=== PATIENT | male | born 1960 | race Caucasian/White ===

== ENCOUNTER 2021-12-31 06:58 | Outpatient (REF) | payer OTHER, SELFPAY ==
[2021-12-31 12:09] LABS: Prostate Specific Antigen Scr 1.49 ng/mL (<0.05-4.0)
[2021-12-31 12:23] LABS: Alanine Aminotransferase 18 U/L (0-40); Alkaline Phosphatase 82 U/L (39-117); Anion Gap 11 (12-20); Aspartate Amino Transferase 14 U/L (5-37); Bilirubin Total 0.7 mg/dL (0.0-1.0); Blood Urea Nitrogen 17 mg/dL (9-16); Calcium 9.1 mg/dL (8.4-10.2); Carbon Dioxide 25 mmol/L (22-29); Chloride 106 mmol/L (96-108); Cholesterol 210 mg/dL; Estimated Glomerular Filt Rate > 60; Glucose Fasting 248 mg/dL (60-99); HDL Cholesterol 30 mg/dL; LDL Cholesterol Calculated 151 mg/dl; Potassium 4.3 mmol/L (3.3-5.1); Sodium 138 mmol/L (135-145); Total Protein 6.8 g/dL (6.5-8.0); Triglycerides 147 mg/dL
[2021-12-31 12:33] LABS: Estimated Average Glucose 280 mg/dL; Hemoglobin A1c % 11.4 %
[2021-12-31 14:11] LABS: Creatinine Urine 119.42 mg/dL
[2022-01-01 19:06] LABS: C Peptide 0.65 ng/mL (0.80-3.85)
== END 2021-12-31 06:59 | disposition home or self-care (01) ==
LOC: HO.HMGCLDS 06:58
PROVIDERS: Visit Provider Internal Medicine
DX: Z12.5 Encounter for screening for malignant neoplasm of prostate (principal); E11.9 Type 2 diabetes mellitus without complications
CPT/HCPCS: 36415; 80053; 80061; 82043; 83036; 84153; 84681

== ENCOUNTER → 2022-02-25 08:58 | Outpatient (BNVA) | payer OTHER, SELFPAY | PROVIDERS: PCP Internal Medicine; Visit Provider Dietitian, Registered | DX: E11.9 Type 2 diabetes mellitus without complications (principal) | CPT/HCPCS: 97802 ==

== ENCOUNTER 2022-04-08 07:00 | Outpatient (REF) | payer OTHER, SELFPAY ==
[2022-04-08 11:39] LABS: Estimated Average Glucose 117 mg/dL; Hemoglobin A1c % 5.7 %
[2022-04-08 11:56] LABS: Alanine Aminotransferase 21 U/L (0-40); Albumin Level 4.1 g/dL (3.5-5.0); Alkaline Phosphatase 76 U/L (39-117); Anion Gap 10 (12-20); Aspartate Amino Transferase 29 U/L (5-37); Bilirubin Total 0.5 mg/dL (0.0-1.0); Blood Urea Nitrogen 19 mg/dL (9-16); Calcium 8.5 mg/dL (8.4-10.2); Carbon Dioxide 26 mmol/L (22-29); Chloride 108 mmol/L (96-108); Cholesterol 120 mg/dL; Estimated Glomerular Filt Rate > 60; Glucose Fasting 115 mg/dL (60-99); HDL Cholesterol 39 mg/dL; LDL Cholesterol Calculated 71 mg/dl; Potassium 4.4 mmol/L (3.3-5.1); Sodium 140 mmol/L (135-145); Total Protein 6.8 g/dL (6.5-8.0); Triglycerides 52 mg/dL
[2022-04-08 12:25] LABS: Creatinine Urine 125.03 mg/dL; Microalbum/Creatinine Ratio Ur 6.3 ug/mg cr
== END 2022-04-08 07:01 | disposition home or self-care (01) ==
LOC: HO.HMGCLDS 07:00
PROVIDERS: Visit Provider Internal Medicine
DX: E11.9 Type 2 diabetes mellitus without complications (principal); E78.5 Hyperlipidemia, unspecified
CPT/HCPCS: 36415; 80053; 80061; 82043; 83036

== ENCOUNTER 2022-07-02 07:22 | Outpatient (REF) | payer OTHER, SELFPAY ==
[2022-07-02 12:32] LABS: Microalbum/Creatinine Ratio Ur 11.4 ug/mg cr
[2022-07-02 12:32] LABS: Cholesterol 149 mg/dL; HDL Cholesterol 44 mg/dL; LDL Cholesterol Calculated 96 mg/dl; Triglycerides 47 mg/dL
[2022-07-02 12:50] LABS: Estimated Average Glucose 117 mg/dL; Hemoglobin A1C 137.7431 umol/L; Hemoglobin A1c % 5.7 %
== END 2022-07-02 07:23 | disposition home or self-care (01) ==
LOC: HO.HMGCLDS 07:22
PROVIDERS: PCP Internal Medicine; Visit Provider Internal Medicine
DX: E78.5 Hyperlipidemia, unspecified (principal); E11.9 Type 2 diabetes mellitus without complications
CPT/HCPCS: 36415; 80061; 82043; 83036

== ENCOUNTER 2023-07-05 07:23 | Outpatient (REF) | payer OTHER, SELFPAY ==
[2023-07-05 11:17] LABS: MANUAL DIFF FLAG NO
[2023-07-05 11:22] LABS: Basophils Percent Auto 1.1 % (0-2); Eosinophils Absolute Auto 0.1 X10*3/uL (0.0-0.4); Hemoglobin 14.2 g/dl (14.0-18.0); Imm Gran Abs Auto 0.03 X10*3/uL (0.00-0.03); Imm Gran Pct Auto 0.8 % (0.0-0.4); Lymphocytes Percent Auto 28.2 % (20-40); Mean Corpuscular HGB Conc 34.6 g/dl (31.0-36.0); Mean Corpuscular Hemoglobin 31.3 pg (27.0-33.0); Mean Corpuscular Volume 90.3 fL (80.0-98.0); Mean Platelet Volume 9.7 fL (9.4-12.4); Monocytes Absolute Auto 0.5 X10*3/uL (0.1-1.2); Monocytes Percent Auto 14.1 % (2-11); Neutrophils Percent Auto 52.8 % (45-73); Platelet Count 251 X10*3/uL (160-400); Red Blood Count 4.54 X10*6/uL (4.60-5.80); Red Cell Distribution Width 12.3 % (11.0-16.0); White Blood Count 3.7 X10*3/uL (4.8-10.8)
[2023-07-05 11:33] LABS: Estimated Average Glucose 128 mg/dL; Hemoglobin A1c % 6.1 % (<6.0)
[2023-07-05 12:35] LABS: Microalbum/Creatinine Ratio Ur 28.7 ug/mg cr (<30)
[2023-07-05 12:45] LABS: Alanine Aminotransferase 24 U/L (0-40); Albumin Level 4.2 g/dL (3.5-5.0); Alkaline Phosphatase 64 U/L (39-117); Anion Gap 11 (12-20); Aspartate Amino Transferase 23 U/L (5-37); Bilirubin Total 0.4 mg/dL (0.0-1.0); Blood Urea Nitrogen 18 mg/dL (9-16); Calcium 9.3 mg/dL (8.4-10.2); Carbon Dioxide 24 mmol/L (22-29); Chloride 109 mmol/L (96-108); Cholesterol 204 mg/dL (<200); Estimated Glomerular Filt Rate > 60; Glucose Fasting 136 mg/dL (60-99); HDL Cholesterol 44 mg/dL (>40); LDL Cholesterol Calculated 141 mg/dL (<100); Potassium 4.3 mmol/L (3.3-5.1); Sodium 140 mmol/L (135-145); Total Protein 7.2 g/dL (6.5-8.0); Triglycerides 98 mg/dL (<150)
== END 2023-07-05 07:24 | disposition home or self-care (01) ==
LOC: HO.HMGCLDS 07:23
PROVIDERS: PCP Internal Medicine; Visit Provider Internal Medicine
DX: E78.5 Hyperlipidemia, unspecified (principal); E11.9 Type 2 diabetes mellitus without complications
CPT/HCPCS: 36415; 80053; 80061; 82043; 82570; 83036; 85025

== ENCOUNTER 2023-07-07 10:16 | Outpatient (AMB) | payer OTHER, SELFPAY ==
[2023-07-07 10:24] VITALS: BP 118/80; PULSE 74; O2SAT 97; BMI 26.1
--- NOTE | 2023-07-07 10:24 | MHC.PC.OV ---
Vital Signs 07/07/23 10:24 Height 5 ft 8 in Weight 172 lb BMI 26.1 BP 118/80 Blood Pressure Location Lt brachial Position Sitting Pulse 74 Pulse Source Pulse Oximeter Pulse Oximetry (%) 97 Oxygen Delivery Method Room Air Intake Visit Reasons: PE Intake Note: Pt is here today for PE. Allergies No Known Allergies Allergy (Verified 07/07/23 10:26) Medication List - Last Reconciled 07/07/23 by Susana Webster MD blood sugar diagnostic (FreeStyle Lite Strips) 1 QD lancets (FreeStyle Lancets) As directed metformin 500 mg PO BID metformin 250 mg PO BID rosuvastatin (Crestor) 5 mg PO DAILY Tobacco use date assessed: 07/07/23 Dental Screening Dental Screen Date: 07/07/23 Did you have a dental visit in the last 12 months?: Yes Did you have a dental problem in the last 6 months where you did not have access to dental care?: No Was dental information given to patient?: Patient has dentist HPI PE HPI Details Pt presents for PE. Pt is going for a ski trip to [place] in October [facility] Medical History Hyperlipidemia DM type 2 (diabetes mellitus, type 2) Family History Father Prostate cancer Mother No problems noted. Social History Housing: House Patient Tobacco Use Status: Never used Tobacco e-Cigarette/Vaping Use: Never Used Current occupational status: employed Cognitive needs: No Hearing needs: No Vision needs: Yes Questionnaire PHQ-9 Over the last 2 weeks, how often have you been bothered by any of the following problems? 1. Little interest or pleasure in doing things: not at all 2. Feeling down, depressed, or hopeless: not at all 3. Trouble falling or staying asleep, or sleeping too much: not at all 4. Feeling tired or having little energy: not at all 5. Poor appetite or overeating: not at all 6. Feeling bad about yourself - or that you are a failure or have let yourself or your family down: not at all 7. Trouble concentrating on things, such as reading the newspaper or watching television: not at all 8. Moving or speaking so slowly that other people could have noticed. Or the opposite - being so fidgety or restless that you have been moving around a lot more than usual: not at all 9. Thoughts that you would be better off or of hurting yourself in some way: not at all Total score: 0 Depression Screening Interpretation: Negative Depression Screening Done: Yes Source: Developed by Drs. Angel Moran, Laura Delgadillo, George Miller and colleagues, with an educational jeevan from [employer]. Thrive Questionnaire Date Thrive assessed: 07/07/23 I am a: Patient What is your living situation today?: I have a steady place to live Within the past 12 months, did the food you bought not last and you didn't have the money to get more?: Never true Within the past 12 months, did you worry whether your food would run out before you got money to buy more?: Never true Do you have trouble paying for medicines?: No Do you have trouble getting transportation to medical appointments?: No Do you have trouble paying your heating and electricity bill?: No Do you have trouble taking care of your child, family member or friend?: No Do you have trouble with day-to-day activities such as bathing, preparing meals, shopping, managing finances, etc.?: No Are you currently unemployed and looking for a job?: No Are you interested in more education?: No Please select the resources that you would like help with: None AUDIT C Alcohol Use Questionnaire (AUDIT-C) 1. How often do you have a drink containing alcohol?: 2-3 times a week 2. How many drinks containing alcohol do you have on a typical day when you are drinking?: 1 or 2 3. How often do you have six or more drinks on one occasion?: Never Total Score: 3 RANDI-7 AMB Questionnaire RANDI-7 Date RANDI - 7 assessed: 07/07/23 Feeling nervous, anxious, or on edge: 0 = Not at all Not being able to stop or control worryin = Not at all Worrying too much about different things: 0 = Not at all Trouble relaxin = Not at all Being so restless that it is hard to sit still: 0 = Not at all Becoming easily annoyed or irritable: 0 = Not at all Feeling afraid as if something awful might happen: 0 = Not at all Total RANDI-7 score (0-4 normal; 5-9 mild; 10-14 moderate; 15-21 severe): 0 Source: Developed by Drs. Angel Moran, Laura Delgadillo, George Miller and colleagues, with an educational jeevan from [employer]. Review of Systems Const All systems reviewed & are unremarkable except as noted in HPI and below Reports no additional complaints Eyes Reports no additional complaints ENT Reports no additional complaints Card Reports no additional complaints Resp Reports no additional complaints GI Reports no additional complaints Reports no additional complaints Musc Reports no additional complaints Neuro Reports no additional complaints Physical exam (Primary Care) Vital Signs: Last Vital Signs Pulse 74 07/07/23 10:24 BP 118/80 07/07/23 10:24 Pulse Ox 97 07/07/23 10:24 Oxygen Delivery Method Room Air 07/07/23 10:24 BMI result Body Mass Index 26.1 Tobacco/Smoking Status: Tobacco use Status Tobacco use date assessed 07/07/23 07/07/23 10:29 Patient Tobacco Use Status Never used Tobacco 07/07/23 10:29 e-Cigarette/Vaping Use Never Used 07/07/23 10:25 PHQ-9: PHQ-9 Score PHQ-9: Total score 0 07/07/23 10:33 Depression Screening Interpretation: Negative Thrive Assessment: Date of Thrive Assessment Date Thrive assessed 07/07/23 07/07/23 10:33 Const General: no acute distress HENMT Head: Yes normal to inspection Ears: hearing grossly normal bilaterally General nose exam: Normal external nose present Face and sinus: Yes normal facial exam Mouth: Normal oral and palatal mucosa present Eyes General: appearance normal, both eyes and all related structures Neck Neck: Yes no lymphadenopathy and Yes supple Resp Effort & Inspection: normal respiratory effort Auscultation: clear to auscultation bilaterally Cardio Rhythm: regular rhythm Heart sounds: S1 normal heart sound present and S2 normal heart sound present GI Inspection: Yes normal to inspection Palpation (GI): Soft to palpation Percussion: Yes normal to percussion Auscultation: normal bowel sounds Assessment and Plan Assessment & Plan (1) DM type 2 (diabetes mellitus, type 2): Code(s): E11.9 - Type 2 diabetes mellitus without complications Plan: A1C is 6.1, increase Metformin to 500 mg bid, ADA diet, exercise, f/u 6 months (2) Hyperlipidemia: Comment: Atorvastatin causes leg cramps Code(s): E78.5 - Hyperlipidemia, unspecified Plan: start Crestor 5 mg, check lipid profile (3) Annual physical exam: Code(s): Z00.00 - Encounter for general adult medical examination without abnormal findings Plan: well balanced diet, regular exercise, pt will have colonoscopy Orders: Orders Lipid Panel 6 Months E11.9 - Type 2 diabetes mellitus without complications, E78.5 - Hyperlipidemia, unspecified, Z00.00 - Encounter for general adult medical examination without abnormal findings PSA,Total (Free>4and<10) 6 Months E11.9 - Type 2 diabetes mellitus without complications, E78.5 - Hyperlipidemia, unspecified, Z00.00 - Encounter for general adult medical examination without abnormal findings Comprehensive [place]. Panel Fast 6 Months E11.9 - Type 2 diabetes mellitus without complications, E78.5 - Hyperlipidemia, unspecified, Z00.00 - Encounter for general adult medical examination without abnormal findings Complete Blood Count Auto Diff 6 Months E11.9 - Type 2 diabetes mellitus without complications, E78.5 - Hyperlipidemia, unspecified, Z00.00 - Encounter for general adult medical examination without abnormal findings Hemoglobin A1c 6 Months E11.9 - Type 2 diabetes mellitus without complications, E78.5 - Hyperlipidemia, unspecified, Z00.00 - Encounter for general adult medical examination without abnormal findings Medications: Changed From metformin 250 mg PO BID To metformin 500 mg PO BID 180 tabs 0RF From metformin 250 mg PO BID To rosuvastatin (Crestor) 5 mg PO DAILY 90 tabs 3RF Refilled metformin 500 mg PO BID 180 tabs 3RF Discontinued rosuvastatin (Crestor) Discontinued Reason: Doctor's Order 10 mg PO DAILY 90 tabs 3RF Coding Level of Care Code Est Pt Prev Care 40-64y(36263) Diagnoses DM type 2 (diabetes mellitus, type 2) E11.9 Hyperlipidemia E78.5 Annual physical exam Z00.00 Additional Codes PHQ-9 - 72002 - PHQ-9 Billing: ([id number])
== END 2023-07-07 10:54 | disposition home or self-care (01) ==
PROVIDERS: Visit Provider Internal Medicine
DX: E11.9 Type 2 diabetes mellitus without complications (principal); E78.5 Hyperlipidemia, unspecified; Z00.00 Encounter for general adult medical examination without abnormal findings
CPT/HCPCS: 99396

== ENCOUNTER 2024-01-04 07:59 | Outpatient (REF) | payer OTHER, SELFPAY ==
[2024-01-04 10:14] LABS: MANUAL DIFF FLAG NO
[2024-01-04 10:36] LABS: Basophils Percent Auto 0.8 % (0-2); Eosinophils Absolute Auto 0.1 X10*3/uL (0.0-0.4); Eosinophils Percent Auto 2.8 % (0-4); Hemoglobin 14.4 g/dl (14.0-18.0); Imm Gran Abs Auto 0.01 X10*3/uL (0.00-0.03); Imm Gran Pct Auto 0.3 % (0.0-0.4); Lymphocytes Absolute Auto 0.9 X10*3/uL (1.2-4.9); Lymphocytes Percent Auto 23.5 % (20-40); Mean Corpuscular HGB Conc 34.3 g/dl (31.0-36.0); Mean Corpuscular Hemoglobin 30.9 pg (27.0-33.0); Mean Corpuscular Volume 90.1 fL (80.0-98.0); Mean Platelet Volume 9.8 fL (9.4-12.4); Monocytes Absolute Auto 0.4 X10*3/uL (0.1-1.2); Monocytes Percent Auto 11.4 % (2-11); Neutrophils Absolute Auto 2.4 x10*3/uL (2.0-8.3); Neutrophils Percent Auto 61.2 % (45-73); Platelet Count 276 X10*3/uL (160-400); Red Blood Count 4.66 X10*6/uL (4.60-5.80); Red Cell Distribution Width 12.5 % (11.0-16.0); White Blood Count 3.9 X10*3/uL (4.8-10.8)
[2024-01-04 11:13] LABS: PSA,Total (Free>4and<10) 2.46 ng/mL (0.00-4.00)
[2024-01-04 11:15] LABS: Alanine Aminotransferase 17 U/L (0-40); Albumin Level 4.2 g/dL (3.5-5.0); Alkaline Phosphatase 74 U/L (39-117); Anion Gap 11 (12-20); Aspartate Amino Transferase 22 U/L (5-37); Bilirubin Total 0.7 mg/dL (0.0-1.0); Blood Urea Nitrogen 22 mg/dL (9-16); Calcium 9.2 mg/dL (8.4-10.2); Carbon Dioxide 23 mmol/L (22-29); Chloride 107 mmol/L (96-108); Cholesterol 180 mg/dL (<200); Estimated Glomerular Filt Rate > 60; Glucose Fasting 115 mg/dL (60-99); HDL Cholesterol 45 mg/dL (>40); LDL Cholesterol Calculated 122 mg/dL (<100); Potassium 4.3 mmol/L (3.3-5.1); Sodium 137 mmol/L (135-145); Total Protein 7.2 g/dL (6.5-8.0); Triglycerides 68 mg/dL (<150)
[2024-01-04 11:26] LABS: Estimated Average Glucose 128 mg/dL; Hemoglobin A1C 151.3024 umol/L; Hemoglobin A1c % 6.1 % (<6.0)
== END 2024-01-04 08:00 | disposition home or self-care (01) ==
LOC: HO.HMGCLDS 07:59
PROVIDERS: PCP Internal Medicine; Visit Provider Internal Medicine
DX: Z00.00 Encounter for general adult medical examination without abnormal findings (principal); E78.5 Hyperlipidemia, unspecified; E11.9 Type 2 diabetes mellitus without complications; Z12.5 Encounter for screening for malignant neoplasm of prostate
CPT/HCPCS: 36415; 80053; 80061; 83036; 84153; 85025

== ENCOUNTER 2024-01-09 10:03 | Outpatient (AMB) | payer OTHER, SELFPAY ==
--- NOTE | 2024-01-09 10:07 | MHC.PC.OV ---
Vital Signs 01/09/24 10:08 Height 5 ft 8 in Weight 171 lb BMI 26.0 BP 130/84 Blood Pressure Location Lt brachial Position Sitting Pulse 70 Pulse Source Pulse Oximeter Pulse Oximetry (%) 98 Oxygen Delivery Method Room Air Intake Visit Reasons: 6 month follow up Intake Note: Pt is here today for 6 months follow up visit. Allergies No Known Allergies Allergy (Verified 01/09/24 10:10) Medication List - Last Reconciled 01/09/24 by Susana Webster MD atorvastatin 20 mg PO DAILY blood sugar diagnostic (FreeStyle Lite Strips) 1 QD lancets (FreeStyle Lancets) As directed metformin 500 mg PO BID Tobacco use date assessed: 01/09/24 Fall risk assessment: No Falls in past year Last assessed Fall Risk: 01/09/24 Dental Screening Dental Screen Date: 01/09/24 Did you have a dental visit in the last 12 months?: Yes Did you have a dental problem in the last 6 months where you did not have access to dental care?: No Was dental information given to patient?: Patient has dentist HPI 6 month follow up HPI Details Patient presents for the follow-up. He has not been compliant with ADA diet and taking medications and regular basis. Patient stopped taking Crestor because of elevation in his blood glucose readings. Patient is physically active at least 4 times a week. [facility] Medical History (Updated 01/09/24 @ 11:09 by Susana Webster MD) Hyperlipidemia DM type 2 (diabetes mellitus, type 2) Surgical History History of orchiectomy Family History Father Prostate cancer Mother No problems noted. Social History Housing: House Patient Tobacco Use Status: Never used Tobacco e-Cigarette/Vaping Use: Never Used service: No Current occupational status: employed Cognitive needs: No Hearing needs: No Vision needs: Yes Questionnaire PHQ-9 Over the last 2 weeks, how often have you been bothered by any of the following problems? 1. Little interest or pleasure in doing things: not at all 2. Feeling down, depressed, or hopeless: not at all 3. Trouble falling or staying asleep, or sleeping too much: not at all 4. Feeling tired or having little energy: not at all 5. Poor appetite or overeating: not at all 6. Feeling bad about yourself - or that you are a failure or have let yourself or your family down: not at all 7. Trouble concentrating on things, such as reading the newspaper or watching television: not at all 8. Moving or speaking so slowly that other people could have noticed. Or the opposite - being so fidgety or restless that you have been moving around a lot more than usual: not at all 9. Thoughts that you would be better off or of hurting yourself in some way: not at all Total score: 0 Depression Screening Interpretation: Negative Depression Screening Done: Yes Source: Developed by Drs. Angel Moran, Laura Delgadillo, George Miller and colleagues, with an educational jeevan from [employer]. Thrive Questionnaire Date Thrive assessed: 01/09/24 I am a: Patient What is your living situation today?: I have a steady place to live Within the past 12 months, did the food you bought not last and you didn't have the money to get more?: Never true Within the past 12 months, did you worry whether your food would run out before you got money to buy more?: Never true Do you have trouble paying for medicines?: No Do you have trouble getting transportation to medical appointments?: No Do you have trouble paying your heating and electricity bill?: No Do you have trouble taking care of your child, family member or friend?: No Do you have trouble with day-to-day activities such as bathing, preparing meals, shopping, managing finances, etc.?: No Are you currently unemployed and looking for a job?: No Are you interested in more education?: No Please select the resources that you would like help with: None THRIVE Score: 0 AUDIT C Alcohol Use Questionnaire (AUDIT-C) 1. How often do you have a drink containing alcohol?: 2-3 times a week 2. How many drinks containing alcohol do you have on a typical day when you are drinking?: 1 or 2 3. How often do you have six or more drinks on one occasion?: Never Total Score: 3 RANDI-7 AMB Questionnaire RANDI-7 Date RANDI - 7 assessed: 01/09/24 Feeling nervous, anxious, or on edge: 0 = Not at all Not being able to stop or control worryin = Not at all Worrying too much about different things: 0 = Not at all Trouble relaxin = Not at all Being so restless that it is hard to sit still: 0 = Not at all Becoming easily annoyed or irritable: 0 = Not at all Feeling afraid as if something awful might happen: 0 = Not at all Total RANDI-7 score (0-4 normal; 5-9 mild; 10-14 moderate; 15-21 severe): 0 Source: Developed by Drs. Angel Moran, Laura Delgadillo, George Miller and colleagues, with an educational jeevan from [employer]. Review of Systems Const All systems reviewed & are unremarkable except as noted in HPI and below Eyes Reports no additional complaints ENT Reports no additional complaints Resp Reports no additional complaints GI Reports no additional complaints Physical exam (Primary Care) Vital Signs: Last Vital Signs Pulse 70 01/09/24 10:08 BP 130/84 01/09/24 10:08 Pulse Ox 98 01/09/24 10:08 Oxygen Delivery Method Room Air 01/09/24 10:08 BMI result Body Mass Index 26.0 Tobacco/Smoking Status: Tobacco use Status Tobacco use date assessed 01/09/24 01/09/24 10:15 Patient Tobacco Use Status Never used Tobacco 01/09/24 10:15 e-Cigarette/Vaping Use Never Used 01/09/24 10:07 PHQ-9: PHQ-9 Score PHQ-9: Total score 0 01/09/24 10:15 Depression Screening Interpretation: Negative Thrive Assessment: Date of Thrive Assessment Date Thrive assessed 01/09/24 01/09/24 10:15 Const General: no acute distress HENMT Face and sinus: Yes normal facial exam Neck Neck: Yes supple Resp Effort & Inspection: normal respiratory effort Auscultation: clear to auscultation bilaterally Cardio Rhythm: regular rhythm Heart sounds: S1 normal heart sound present and S2 normal heart sound present GI Inspection: Yes normal to inspection Palpation (GI): Soft to palpation Assessment and Plan Assessment & Plan (1) DM type 2 (diabetes mellitus, type 2): Code(s): E11.9 - Type 2 diabetes mellitus without complications Plan: A1c is 6.1, ADA diet increase exercise and medication compliance discussed with the patient (2) Hyperlipidemia: Comment: Crestor hyperglycemia Code(s): E78.5 - Hyperlipidemia, unspecified Plan: Change Crestor to atorvastatin 20 mg follow-up in 3 months with a fasting labs before Orders: Orders Comprehensive [place]. Panel Fast 3 Months E11.9 - Type 2 diabetes mellitus without complications, E78.5 - Hyperlipidemia, unspecified Hemoglobin A1c 3 Months E11.9 - Type 2 diabetes mellitus without complications, E78.5 - Hyperlipidemia, unspecified Microalbumin, Random (w Creat) 3 Months E11.9 - Type 2 diabetes mellitus without complications, E78.5 - Hyperlipidemia, unspecified Complete Blood Count Auto Diff 3 Months E11.9 - Type 2 diabetes mellitus without complications, E78.5 - Hyperlipidemia, unspecified Lipid Panel 3 Months E11.9 - Type 2 diabetes mellitus without complications, E78.5 - Hyperlipidemia, unspecified Medications: New atorvastatin 20 mg PO DAILY 90 tabs 0RF Refilled blood sugar diagnostic (FreeStyle Lite Strips) 1 QD 100 ea 3RF Discontinued rosuvastatin (Crestor) Discontinued Reason: Doctor's Order 5 mg PO DAILY 90 tabs 3RF Coding Level of Care Code Est Pt Level 4 (46633) Diagnoses DM type 2 (diabetes mellitus, type 2) E11.9 Hyperlipidemia E78.5 Additional Codes PHQ-9 - 98277 - PHQ-9 Billing: ([id number])
[2024-01-09 10:08] VITALS: BP 130/84; PULSE 70; O2SAT 98; BMI 26.0
== END 2024-01-09 10:48 | disposition home or self-care (01) ==
PROVIDERS: PCP Internal Medicine; Visit Provider Internal Medicine
DX: E11.9 Type 2 diabetes mellitus without complications (principal); E78.5 Hyperlipidemia, unspecified
CPT/HCPCS: 99214

== ENCOUNTER 2024-04-11 06:09 | Outpatient (REF) | payer OTHER, SELFPAY ==
[2024-04-11 10:03] LABS: MANUAL DIFF FLAG NO
[2024-04-11 10:13] LABS: Eosinophils Absolute Auto 0.2 X10*3/uL (0.0-0.4); Eosinophils Percent Auto 3.9 % (0-4); Hematocrit 38.6 % (42.0-52.0); Hemoglobin 13.3 g/dl (14.0-18.0); Lymphocytes Percent Auto 23.5 % (20-40); Mean Corpuscular HGB Conc 34.5 g/dl (31.0-36.0); Mean Corpuscular Hemoglobin 31.6 pg (27.0-33.0); Mean Corpuscular Volume 91.7 fL (80.0-98.0); Mean Platelet Volume 9.8 fL (9.4-12.4); Monocytes Absolute Auto 0.4 X10*3/uL (0.1-1.2); Neutrophils Absolute Auto 2.5 x10*3/uL (2.0-8.3); Neutrophils Percent Auto 61.6 % (45-73); Platelet Count 235 X10*3/uL (160-400); Red Blood Count 4.21 X10*6/uL (4.60-5.80); Red Cell Distribution Width 12.5 % (11.0-16.0); White Blood Count 4.1 X10*3/uL (4.8-10.8)
[2024-04-11 10:35] LABS: Alanine Aminotransferase 19 U/L (0-40); Albumin Level 3.9 g/dL (3.5-5.0); Alkaline Phosphatase 67 U/L (39-117); Anion Gap 9 (12-20); Aspartate Amino Transferase 21 U/L (5-37); Bilirubin Total 0.3 mg/dL (0.0-1.0); Blood Urea Nitrogen 22 mg/dL (9-16); Calcium 8.7 mg/dL (8.4-10.2); Carbon Dioxide 27 mmol/L (22-29); Chloride 108 mmol/L (96-108); Cholesterol 126 mg/dL (<200); Estimated Glomerular Filt Rate > 60; Glucose Fasting 134 mg/dL (60-99); HDL Cholesterol 36 mg/dL (>40); LDL Cholesterol Calculated 77 mg/dL (<100); Potassium 4.1 mmol/L (3.3-5.1); Sodium 140 mmol/L (135-145); Total Protein 6.7 g/dL (6.5-8.0); Triglycerides 66 mg/dL (<150)
[2024-04-11 10:47] LABS: Creatinine Urine 137.42 mg/dL; Microalbum/Creatinine Ratio Ur 10.9 ug/mg cr (<30)
[2024-04-11 11:20] LABS: Estimated Average Glucose 134 mg/dL; Hemoglobin A1c % 6.3 % (<6.0)
== END 2024-04-11 06:10 | disposition home or self-care (01) ==
LOC: HO.HMGCLDS 06:09
PROVIDERS: PCP Internal Medicine; Visit Provider Internal Medicine
DX: E11.9 Type 2 diabetes mellitus without complications (principal); E78.5 Hyperlipidemia, unspecified
CPT/HCPCS: 36415; 80053; 80061; 82043; 82570; 83036; 85025

== ENCOUNTER 2024-04-12 10:55 | Outpatient (AMB) | payer OTHER, SELFPAY ==
[2024-04-12 11:00] VITALS: BP 128/80; PULSE 67; O2SAT 98; BMI 25.5
--- NOTE | 2024-04-12 11:00 | A.OFFPC_ITS ---
Vital Signs 04/12/24 11:00 Height 5 ft 8 in Weight 168 lb BMI 25.5 BP 128/80 Blood Pressure Location Lt brachial Position Sitting Pulse 67 Pulse Source Pulse Oximeter Pulse Oximetry (%) 98 Oxygen Delivery Method Room Air Intake Visit Reasons: 3M F/U labs Intake Note: Pt is here today for 3 months follow up visit on labs. Allergies No Known Allergies Allergy (Verified 04/12/24 11:00) Medication List - Last Reconciled 04/12/24 by Susana Webster MD atorvastatin 20 mg PO DAILY blood sugar diagnostic (FreeStyle Lite Strips) 1 QD lancets (FreeStyle Lancets) As directed metformin 500 mg PO BID Tobacco use date assessed: 04/12/24 Fall risk assessment: No Falls in past year Last assessed Fall Risk: 04/12/24 Dental Screening Dental Screen Date: 01/09/24 HPI 3M F/U labs HPI Details Pt presents for f/u. Pt c/o chronic for few months R sided LBP pain worse for 2 weeks when standing up and walking . Patient denies pain when sitting or lying down. He reports intermittent pain radiating to right lower extremity. he complains of chronic right knee pain and stiffness worse after exercising. Patient works physically in construction, lifting heavily. Patient denies weakness or numbness in extremities. He has been following ADA diet and taking metformin for type 2 diabetes [facility] Medical History (Updated 04/12/24 @ 11:52 by Susana Webster MD) Hyperlipidemia DM type 2 (diabetes mellitus, type 2) Surgical History History of orchiectomy Family History Father Prostate cancer Mother No problems noted. Social History Housing: House Patient Tobacco Use Status: Never used Tobacco e-Cigarette/Vaping Use: Never Used service: No Current occupational status: employed Cognitive needs: No Hearing needs: No Vision needs: Yes Questionnaire Thrive Questionnaire Date Thrive assessed: 01/09/24 RANDI-7 AMB Questionnaire RANDI-7 Date RANDI - 7 assessed: 01/09/24 Source: Developed by Drs. Angel Moran, Laura B.W. George Delgadillo and colleagues, with an educational jeevan from [employer]. Review of Systems Const All systems reviewed & are unremarkable except as noted in HPI and below Eyes Reports no additional complaints ENT Reports no additional complaints Card Reports no additional complaints Resp Reports no additional complaints GI Reports no additional complaints Reports no additional complaints Physical exam (Primary Care) Vital Signs: Last Vital Signs Pulse 67 04/12/24 11:00 BP 128/80 04/12/24 11:00 Pulse Ox 98 04/12/24 11:00 Oxygen Delivery Method Room Air 04/12/24 11:00 BMI result Body Mass Index 25.5 Tobacco/Smoking Status: Tobacco use Status Tobacco use date assessed 04/12/24 04/12/24 11:01 Patient Tobacco Use Status Never used Tobacco 04/12/24 11:00 e-Cigarette/Vaping Use Never Used 04/12/24 11:00 Thrive Assessment: Date of Thrive Assessment Date Thrive assessed 01/09/24 04/12/24 11:00 Const General: no acute distress HENMT Head: Yes normal to inspection Ears: hearing grossly normal bilaterally Mouth: Normal oral and palatal mucosa present Eyes General: appearance normal, both eyes and all related structures Resp Effort & Inspection: normal respiratory effort Auscultation: clear to auscultation bilaterally Cardio Rhythm: regular rhythm Heart sounds: S1 normal heart sound present and S2 normal heart sound present GI Inspection: Yes normal to inspection Palpation (GI): Soft to palpation Percussion: Yes normal to percussion Auscultation: normal bowel sounds Extrem Other: There is tenderness over right SI joint, straight leg rising 90 degrees bilaterally, paraspinal tenderness in lower lumbar region right more than left, right knee with crepitus and decreased range of motion, no soft tissue swelling erythema or warmth Assessment and Plan Assessment & Plan (1) Lower back pain: Code(s): M54.50 - Low back pain, unspecified Plan: For chronic lower back and SI joint pain x-rays will be obtained. Meloxicam is prescribed and patient will be referred to physical therapy (2) DM type 2 (diabetes mellitus, type 2): Code(s): E11.9 - Type 2 diabetes mellitus without complications Plan: A1c is 6.3 ADA diet increase exercise weight loss discussed with the patient continue metformin follow-up in 3 months with a fasting labs before (3) Hyperlipidemia: Comment: Crestor hyperglycemia Code(s): E78.5 - Hyperlipidemia, unspecified Plan: Continue statin (4) Anemia: Code(s): D64.9 - Anemia, unspecified Plan: Check iron studies and B12 level (5) Dysplastic nevus: Code(s): D23.9 - Other benign neoplasm of skin, unspecified Plan: Referred to dermatology Orders: Orders XR lumbar spine 2-3V Today M54.50 - Low back pain, unspecified XR hip BI w PEL1V Today M54.50 - Low back pain, unspecified Hemoglobin A1c 3 Months D64.9 - Anemia, unspecified, E11.9 - Type 2 diabetes mellitus without complications, E78.5 - Hyperlipidemia, unspecified Complete Blood Count Auto Diff 3 Months D64.9 - Anemia, unspecified, E11.9 - Type 2 diabetes mellitus without complications, E78.5 - Hyperlipidemia, unspecified Vitamin B12 and Folate 3 Months D64.9 - Anemia, unspecified, E11.9 - Type 2 diabetes mellitus without complications, E78.5 - Hyperlipidemia, unspecified XR sacroiliac joint min 3V Today M54.50 - Low back pain, unspecified Comprehensive [place]. Panel Fast 3 Months D64.9 - Anemia, unspecified, E11.9 - Type 2 diabetes mellitus without complications, E78.5 - Hyperlipidemia, unspecified Lipid Panel 3 Months D64.9 - Anemia, unspecified, E11.9 - Type 2 diabetes mellitus without complications, E78.5 - Hyperlipidemia, unspecified Microalbumin, Random (w Creat) 3 Months D64.9 - Anemia, unspecified, E11.9 - Type 2 diabetes mellitus without complications, E78.5 - Hyperlipidemia, unspecified IRON PROFILE 3 Months D64.9 - Anemia, unspecified, E11.9 - Type 2 diabetes mellitus without complications, E78.5 - Hyperlipidemia, unspecified Referrals Dermatology Referral D23.9 - Other benign neoplasm of skin, unspecified Medications: New meloxicam 15 mg PO DAILY 10 tabs 0RF Coding Level of Care Code Est Pt Level 4 (07746) Diagnoses Lower back pain M54.50 DM type 2 (diabetes mellitus, type 2) E11.9 Hyperlipidemia E78.5 Anemia D64.9 Dysplastic nevus D23.9
== END 2024-04-12 12:35 | disposition home or self-care (01) ==
PROVIDERS: PCP Internal Medicine; Visit Provider Internal Medicine
DX: M54.50 Low back pain, unspecified (principal); E11.9 Type 2 diabetes mellitus without complications; E78.5 Hyperlipidemia, unspecified; D64.9 Anemia, unspecified; D23.9 Other benign neoplasm of skin, unspecified
CPT/HCPCS: 99214

== ENCOUNTER 2024-04-12 11:54 | Outpatient (REF) | payer OTHER, SELFPAY ==
--- NOTE | ~2024-04-12 | XR_ITS ---
EXAMINATION: XR LUMBAR SPINE XR SACROILIAC JOINTS XR BILATERAL HIPS AND PELVIS CLINICAL INFORMATION: Low back pain. COMPARISON: None available. TECHNIQUE: 3 views lumbar spine, 3 views sacroiliac joint and 5 views of bilateral hips. FINDINGS: LUMBAR SPINE: Dextroscoliosis of the lumbar spine. Straightening of the normal lumbar lordosis. Advanced facet arthritis in the [id number] lumbar spine. Severe multilevel lumbar spondylosis with multilevel loss of disc space height. There is a transitional lumbosacral vertebral body referred to as L5 for the purposes of this report. There is an enlarged left L5 transverse process with pseudoarticulation on the left. There is possible right L5 pseudoarticulation. Correlation with imaging of the entire spine recommended before any procedure/instrumentation to ensure correct numbering of vertebral bodies. BILATERAL SACROILIAC JOINTS: Osteitis pubis. Bilateral sacroiliac joint osteoarthritis. BILATERAL HIPS: Osteitis pubis. 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 XR/XR lumbar spine 2-3V IMPRESSION: 1. Severe multilevel lumbar spondylosis. 2. Transitional lumbosacral vertebral body referred to as L5 for the purposes of this report. There is an enlarged left L5 transverse process with pseudoarticulation on the left. There is possible right L5 pseudoarticulation. Correlation with imaging of the entire spine recommended before any procedure/instrumentation to ensure correct numbering of vertebral bodies. 3. 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 4. Bilateral sacroiliac joint osteoarthritis.
--- NOTE | ~2024-04-12 | XR_ITS ---
EXAMINATION: XR LUMBAR SPINE XR SACROILIAC JOINTS XR BILATERAL HIPS AND PELVIS CLINICAL INFORMATION: Low back pain. COMPARISON: None available. TECHNIQUE: 3 views lumbar spine, 3 views sacroiliac joint and 5 views of bilateral hips. FINDINGS: LUMBAR SPINE: Dextroscoliosis of the lumbar spine. Straightening of the normal lumbar lordosis. Advanced facet arthritis in the [id number]-[id number] lumbar spine. Severe multilevel lumbar spondylosis with multilevel loss of disc space height. There is a transitional lumbosacral vertebral body referred to as L5 for the purposes of this report. There is an enlarged left L5 transverse process with pseudoarticulation on the left. There is possible right L5 pseudoarticulation. Correlation with imaging of the entire spine recommended before any procedure/instrumentation to ensure correct numbering of vertebral bodies. BILATERAL SACROILIAC JOINTS: Osteitis pubis. Bilateral sacroiliac joint osteoarthritis. BILATERAL HIPS: Osteitis pubis. 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 XR/XR hip BI w PEL1V IMPRESSION: 1. Severe multilevel lumbar spondylosis. 2. Transitional lumbosacral vertebral body referred to as L5 for the purposes of this report. There is an enlarged left L5 transverse process with pseudoarticulation on the left. There is possible right L5 pseudoarticulation. Correlation with imaging of the entire spine recommended before any procedure/instrumentation to ensure correct numbering of vertebral bodies. 3. 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 4. Bilateral sacroiliac joint osteoarthritis.
--- NOTE | ~2024-04-12 | XR_ITS ---
EXAMINATION: XR LUMBAR SPINE XR SACROILIAC JOINTS XR BILATERAL HIPS AND PELVIS CLINICAL INFORMATION: Low back pain. COMPARISON: None available. TECHNIQUE: 3 views lumbar spine, 3 views sacroiliac joint and 5 views of bilateral hips. FINDINGS: LUMBAR SPINE: Dextroscoliosis of the lumbar spine. Straightening of the normal lumbar lordosis. Advanced facet arthritis in the ajl-mz-atgnv lumbar spine. Severe multilevel lumbar spondylosis with multilevel loss of disc space height. There is a transitional lumbosacral vertebral body referred to as L5 for the purposes of this report. There is an enlarged left L5 transverse process with pseudoarticulation on the left. There is possible right L5 pseudoarticulation. Correlation with imaging of the entire spine recommended before any procedure/instrumentation to ensure correct numbering of vertebral bodies. BILATERAL SACROILIAC JOINTS: Osteitis pubis. Bilateral sacroiliac joint osteoarthritis. BILATERAL HIPS: Osteitis pubis. 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 XR/XR sacroiliac joint min 3V IMPRESSION: 1. Severe multilevel lumbar spondylosis. 2. Transitional lumbosacral vertebral body referred to as L5 for the purposes of this report. There is an enlarged left L5 transverse process with pseudoarticulation on the left. There is possible right L5 pseudoarticulation. Correlation with imaging of the entire spine recommended before any procedure/instrumentation to ensure correct numbering of vertebral bodies. 3. 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 4. Bilateral sacroiliac joint osteoarthritis.
== END 2024-04-12 11:55 | disposition home or self-care (01) ==
LOC: HO.HMGCX 11:54
PROVIDERS: PCP Internal Medicine; Visit Provider Internal Medicine
DX: M54.50 Low back pain, unspecified (principal); M47.816 Spondylosis without myelopathy or radiculopathy, lumbar region; M46.1 Sacroiliitis, not elsewhere classified
CPT/HCPCS: 72100; 72202; 73521

== ENCOUNTER 2024-07-19 06:40 | Outpatient (REF) | payer OTHER, SELFPAY ==
[2024-07-19 10:13] LABS: MANUAL DIFF FLAG NO
[2024-07-19 10:19] LABS: Basophils Percent Auto 1.2 % (0-2); Eosinophils Absolute Auto 0.1 X10*3/uL (0.0-0.4); Eosinophils Percent Auto 3.5 % (0-4); Hematocrit 38.9 % (42.0-52.0); Hemoglobin 13.3 g/dl (14.0-18.0); Imm Gran Abs Auto 0.01 X10*3/uL (0.00-0.03); Imm Gran Pct Auto 0.3 % (0.0-0.4); Lymphocytes Absolute Auto 0.8 X10*3/uL (1.2-4.9); Lymphocytes Percent Auto 23.1 % (20-40); Mean Corpuscular HGB Conc 34.2 g/dl (31.0-36.0); Mean Corpuscular Hemoglobin 31.5 pg (27.0-33.0); Mean Corpuscular Volume 92.2 fL (80.0-98.0); Mean Platelet Volume 9.7 fL (9.4-12.4); Monocytes Absolute Auto 0.4 X10*3/uL (0.1-1.2); Neutrophils Absolute Auto 2.1 x10*3/uL (2.0-8.3); Neutrophils Percent Auto 60.9 % (45-73); Platelet Count 268 X10*3/uL (160-400); Red Blood Count 4.22 X10*6/uL (4.60-5.80); Red Cell Distribution Width 12.6 % (11.0-16.0); White Blood Count 3.5 X10*3/uL (4.8-10.8)
[2024-07-19 11:03] LABS: Estimated Average Glucose 140 mg/dL; Hemoglobin A1C 155.5925 umol/L; Hemoglobin A1c % 6.5 % (<6.0)
[2024-07-19 11:04] LABS: Alanine Aminotransferase 24 U/L (0-40); Albumin Level 3.9 g/dL (3.5-5.0); Alkaline Phosphatase 73 U/L (39-117); Anion Gap 10 (12-20); Aspartate Amino Transferase 19 U/L (5-37); Bilirubin Total 0.4 mg/dL (0.0-1.0); Blood Urea Nitrogen 19 mg/dL (9-16); Calcium 8.8 mg/dL (8.4-10.2); Carbon Dioxide 28 mmol/L (22-29); Chloride 109 mmol/L (96-108); Cholesterol 129 mg/dL (<200); Estimated Glomerular Filt Rate > 60; Glucose Fasting 143 mg/dL (60-99); HDL Cholesterol 41 mg/dL (>40); Iron 56 mcg/dL (45-160); LDL Cholesterol Calculated 78 mg/dL (<100); Percent Iron Saturation 24 % (15-50); Potassium 3.9 mmol/L (3.3-5.1); Sodium 143 mmol/L (135-145); Total Iron Binding Capacity 238 mcg/dL (228-428); Total Protein 6.6 g/dL (6.5-8.0); Triglycerides 54 mg/dL (<150); Unsaturated Iron Binding 182 ug/dL
[2024-07-19 11:22] LABS: Creatinine Urine 172.69 mg/dL; Microalbum/Creatinine Ratio Ur 19.6 ug/mg cr (<30)
[2024-07-19 11:32] LABS: Folate 9.4 ng/mL (> or = 4.0); Vitamin B12 381 pg/mL (200-900)
== END 2024-07-19 06:41 | disposition home or self-care (01) ==
LOC: HO.HMGCLDS 06:40
PROVIDERS: PCP Internal Medicine; Visit Provider Internal Medicine
DX: Z00.00 Encounter for general adult medical examination without abnormal findings (principal); E11.9 Type 2 diabetes mellitus without complications; E78.5 Hyperlipidemia, unspecified; D64.9 Anemia, unspecified; Z98.890 Other specified postprocedural states
CPT/HCPCS: 36415; 80053; 80061; 82043; 82570; 82607; 82746; 83036; 83540; 85025; 96127

== ENCOUNTER 2024-07-19 12:50 | Outpatient (AMB) | payer OTHER, SELFPAY ==
[2024-07-19 13:15] VITALS: BP 128/76; PULSE 81; O2SAT 97; BMI 25.2
--- NOTE | 2024-07-19 13:15 | MHC.PC.OV ---
Vital Signs 07/19/24 13:15 Height 5 ft 8 in Weight 166 lb BMI 25.2 BP 128/76 Blood Pressure Location Lt brachial Position Sitting Pulse 81 Pulse Source Pulse Oximeter Pulse Oximetry (%) 97 Oxygen Delivery Method Room Air Intake Visit Reasons: PE Intake Note: Pt is here today for PE. Allergies No Known Allergies Allergy (Verified 07/19/24 13:19) Medication List - Last Reconciled 07/19/24 by Susana Webster MD atorvastatin 20 mg PO DAILY blood sugar diagnostic (FreeStyle Lite Strips) 1 QD lancets (FreeStyle Lancets) As directed metformin 500 mg PO BID Tobacco use date assessed: 07/19/24 Fall risk assessment: No Falls in past year Last assessed Fall Risk: 07/19/24 Dental Screening Dental Screen Date: 07/19/24 Did you have a dental visit in the last 12 months?: Yes Did you have a dental problem in the last 6 months where you did not have access to dental care?: No Was dental information given to patient?: Patient has dentist HPI PE HPI Details Pt presents for PE. PFSH Medical History Hyperlipidemia DM type 2 (diabetes mellitus, type 2) Surgical History History of orchiectomy Family History Father Prostate cancer Mother No problems noted. Social History Housing: House Patient Tobacco Use Status: Never used Tobacco e-Cigarette/Vaping Use: Never Used service: No Current occupational status: employed Cognitive needs: No Hearing needs: No Vision needs: Yes Questionnaire PHQ-9 Over the last 2 weeks, how often have you been bothered by any of the following problems? 1. Little interest or pleasure in doing things: not at all 2. Feeling down, depressed, or hopeless: not at all 3. Trouble falling or staying asleep, or sleeping too much: not at all 4. Feeling tired or having little energy: not at all 5. Poor appetite or overeating: not at all 6. Feeling bad about yourself - or that you are a failure or have let yourself or your family down: not at all 7. Trouble concentrating on things, such as reading the newspaper or watching television: not at all 8. Moving or speaking so slowly that other people could have noticed. Or the opposite - being so fidgety or restless that you have been moving around a lot more than usual: not at all 9. Thoughts that you would be better off or of hurting yourself in some way: not at all Total score: 0 Depression Screening Interpretation: Negative Depression Screening Done: Yes 15063 - PHQ-9 Billing: Yes Source: Developed by Drs. Angel Moran, Laura Delgadillo, George Miller and colleagues, with an educational jeevan from [employer]. Thrive Questionnaire Date Thrive assessed: 07/19/24 I am a: Patient What is your living situation today?: I have a steady place to live Within the past 12 months, did the food you bought not last and you didn't have the money to get more?: Never true Within the past 12 months, did you worry whether your food would run out before you got money to buy more?: Never true Do you have trouble paying for medicines?: I choose not to answer this question Do you have trouble getting transportation to medical appointments?: No Do you have trouble paying your heating and electricity bill?: No Do you have trouble taking care of your child, family member or friend?: No Do you have trouble with day-to-day activities such as bathing, preparing meals, shopping, managing finances, etc.?: No Are you currently unemployed and looking for a job?: No Are you interested in more education?: No Please select the resources that you would like help with: None Currently or been in a relationship where the following occur: No concerns reported THRIVE Score: 0 AUDIT C Alcohol Use Questionnaire (AUDIT-C) 1. How often do you have a drink containing alcohol?: 2-3 times a week 2. How many drinks containing alcohol do you have on a typical day when you are drinking?: 1 or 2 3. How often do you have six or more drinks on one occasion?: Less than monthly Total Score: 4 RANDI-7 AMB Questionnaire RANDI-7 Date RANDI - 7 assessed: 07/19/24 Feeling nervous, anxious, or on edge: 0 = Not at all Not being able to stop or control worryin = Not at all Worrying too much about different things: 0 = Not at all Trouble relaxin = Not at all Being so restless that it is hard to sit still: 0 = Not at all Becoming easily annoyed or irritable: 0 = Not at all Feeling afraid as if something awful might happen: 0 = Not at all Total RANDI-7 score (0-4 normal; 5-9 mild; 10-14 moderate; 15-21 severe): 0 Source: Developed by Drs. Angel Moran, Laura Delgadillo, George Miller and colleagues, with an educational jeevan from [employer]. RANDI-7 Assessment Billing RANDI-7 Assessment Tool: RANDI-7 Assessment 20394 Review of Systems Const All systems reviewed & are unremarkable except as noted in HPI and below Reports no additional complaints Eyes Reports no additional complaints ENT Reports no additional complaints Card Reports no additional complaints Resp Reports no additional complaints GI Reports no additional complaints Reports no additional complaints Physical exam (Primary Care) Vital Signs: Last Vital Signs Pulse 81 07/19/24 13:15 BP 128/76 07/19/24 13:15 Pulse Ox 97 07/19/24 13:15 Oxygen Delivery Method Room Air 07/19/24 13:15 BMI result Body Mass Index 25.2 Tobacco/Smoking Status: Tobacco use Status Tobacco use date assessed 07/19/24 07/19/24 13:21 Patient Tobacco Use Status Never used Tobacco 07/19/24 13:21 e-Cigarette/Vaping Use Never Used 07/19/24 13:15 PHQ-9: PHQ-9 Score PHQ-9: Total score 0 07/19/24 13:21 Depression Screening Interpretation: Negative Thrive Assessment: Date of Thrive Assessment Date Thrive assessed 07/19/24 07/19/24 13:21 Currently or been in a relationship where the following occur: No concerns reported Const General: no acute distress HENMT Head: Yes normal to inspection Ears: hearing grossly normal bilaterally General nose exam: Normal external nose present Face and sinus: Yes normal facial exam Mouth: Normal oral and palatal mucosa present Throat: Yes posterior oropharynx normal Eyes General: appearance normal, both eyes and all related structures Neck Neck: Yes no lymphadenopathy and Yes supple Resp Effort & Inspection: normal respiratory effort Auscultation: clear to auscultation bilaterally Cardio Rhythm: regular rhythm Heart sounds: S1 normal heart sound present and S2 normal heart sound present GI Inspection: Yes normal to inspection Palpation (GI): Soft to palpation Percussion: Yes normal to percussion Auscultation: normal bowel sounds Coding Level of Care Code Est Pt Prev Care 40-64y(68528) Diagnoses DM type 2 (diabetes mellitus, type 2) E11.9 Hx of colonoscopy Z98.890 Annual physical exam Z00.00 Additional Codes RANDI-7 Assessment Billing - RANDI-7 Assessment Tool: RANDI-7 Assessment 14745 ([id number]) Assessment & Plan Assessment & Plan (1) DM type 2 (diabetes mellitus, type 2): Code(s): E11.9 - Type 2 diabetes mellitus without complications Category: Medical Plan: A1C IS 6.5, ADA diet regular physical activity discussed with the patient. Follow-up in 4 months with a fasting labs before (2) Hx of colonoscopy: Comment: Dr. Zhang, 2016, repeat in 5 yrs, FHx colon polyps: father and brother Code(s): Z98.890 - Other specified postprocedural states Category: Surgical Plan: Patient will have colonoscopy at [facility] (3) Annual physical exam: Code(s): Z00.00 - Encounter for general adult medical examination without abnormal findings Category: Medical Plan: Well-balanced diet regular physical activity discussed with the patient Orders: Orders Comprehensive [place]. Panel Fast 4 Months E11.9 - Type 2 diabetes mellitus without complications, E78.5 - Hyperlipidemia, unspecified, Z00.00 - Encounter for general adult medical examination without abnormal findings Hemoglobin A1c 4 Months E11.9 - Type 2 diabetes mellitus without complications, E78.5 - Hyperlipidemia, unspecified, Z00.00 - Encounter for general adult medical examination without abnormal findings Complete Blood Count Auto Diff 4 Months E11.9 - Type 2 diabetes mellitus without complications, E78.5 - Hyperlipidemia, unspecified, Z00.00 - Encounter for general adult medical examination without abnormal findings Microalbumin, Random (w Creat) 4 Months E11.9 - Type 2 diabetes mellitus without complications, E78.5 - Hyperlipidemia, unspecified, Z00.00 - Encounter for general adult medical examination without abnormal findings
== END 2024-07-19 13:55 | disposition home or self-care (01) ==
PROVIDERS: PCP Internal Medicine; Visit Provider Internal Medicine
DX: E11.9 Type 2 diabetes mellitus without complications (principal); Z98.890 Other specified postprocedural states; Z00.00 Encounter for general adult medical examination without abnormal findings

== ENCOUNTER 2024-11-19 08:41 | Outpatient (REF) | payer OTHER, SELFPAY ==
--- OUTSIDE RECORDS SUMMARY | 2024-11-19 08:44 | XMS_ITS | Clinical Summary ---
Author Organization [facility] Address [address] [place] [address] Phone Care Team Providers Care Suction Plate Roller Hand Name Role Phone Susana Webster MD Primary Care Provider [phone] Encounters Date Type Department Care Team Description 09/05/2024 Telephone Gastroenterology [facility] [address] [facility] [address] [facility] [address] [place] [address] Marti Padilla MD provider call back from Last 3 Months Social History Tobacco Use Types Packs/Day Years Used Date Smoking Tobacco: Never Assessed Sex and Gender Information Value Date Recorded Sex Assigned at Not on file Legal Sex Male 10:20 AM EST Gender Identity Not on file Sexual Orientation Not on file Plan of Treatment Health Maintenance Due Date Last Done Comments DTaP,Tdap,and Td Vaccines (1 - Tdap) 1978 Pneumococcal Vaccine: 50+ Ye ars (1 of 1 - PCV) 2009 Zoster Vaccines (1 of 2) 2009 Cholesterol Screening (Lipid Panel) 01/27/2023 Depression Screening 01/27/2023 HIV Screening 01/27/2023 Hepatitis C Screening 01/27/2023 Social Influencers of Health Screening 01/27/2023 COVID-19 Vaccine (1 - 2023-2 5 season) 2024 Influenza Vaccine (#1) 2024 Falls Risk Assessment 2024 Colorectal Cancer Screening: Colonoscopy 09/11/2025 09/11/2024 RSV Immunization Patients 60 + Years Old (1 - 1-dose 75+ series) 2034 HIB Vaccines Aged Out No longer eligi ble based on patient's age to complete this topic HPV Vaccines Aged Out No longer eligi ble based on patient's age to complete this topic Hepatitis A Vaccines Aged Out No long er eligible based on patient's age to complete this topic Hepatitis B Vaccines Aged Out No long er eligible based on patient's age to complete this topic IPV Vaccines Aged Out No longer eligi ble based on patient's age to complete this topic MMR Vaccines Aged Out No longer eligi ble based on patient's age to complete this topic Meningococcal ACWY Vaccine Aged Out N o longer eligible based on patient's age to complete this topic Meningococcal B Vacine Aged Out No lo nger eligible based on patient's age to complete this topic Pneumococcal Vaccine: Pediat rics (0 to 5 Years) and At-Risk Patients (6 to 64 Years) Aged Out No longer eligi ble based on patient's age to complete this topic RSV Immunization Patients Un tyron 20 months Aged Out No longer eligible b ased on patient's age to complete this topic Varicella Vaccines Aged Out No longer eligible based on patient's age to complete this topic Care Teams Suction Plate Roller Hand Relationship Specialty Start Date End Date Susana Webster MD PCP - General 07/08/22
[2024-11-19 10:18] LABS: MANUAL DIFF FLAG NO
[2024-11-19 10:25] LABS: Eosinophils Absolute Auto 0.1 X10*3/uL (0.0-0.4); Eosinophils Percent Auto 2.6 % (0-4); Hematocrit 40.6 % (42.0-52.0); Imm Gran Abs Auto 0.02 X10*3/uL (0.00-0.03); Imm Gran Pct Auto 0.5 % (0.0-0.4); Lymphocytes Percent Auto 26.2 % (20-40); Mean Corpuscular HGB Conc 34.5 g/dl (31.0-36.0); Mean Corpuscular Hemoglobin 31.2 pg (27.0-33.0); Mean Corpuscular Volume 90.4 fL (80.0-98.0); Mean Platelet Volume 9.6 fL (9.4-12.4); Monocytes Absolute Auto 0.4 X10*3/uL (0.1-1.2); Monocytes Percent Auto 11.4 % (2-11); Neutrophils Absolute Auto 2.3 x10*3/uL (2.0-8.3); Neutrophils Percent Auto 58.3 % (45-73); Platelet Count 245 X10*3/uL (160-400); Red Blood Count 4.49 X10*6/uL (4.60-5.80); Red Cell Distribution Width 12.7 % (11.0-16.0); White Blood Count 3.9 X10*3/uL (4.8-10.8)
[2024-11-19 10:37] LABS: Estimated Average Glucose 151 mg/dL; Hemoglobin A1C 191.0531 umol/L; Hemoglobin A1c % 6.9 % (<6.0); Total Hemoglobin (HGBA1C) 3642.7768 umol/L
[2024-11-19 10:41] LABS: Alanine Aminotransferase 24 U/L (0-40); Albumin Level 4.1 g/dL (3.5-5.0); Alkaline Phosphatase 65 U/L (39-117); Anion Gap 10 (12-20); Aspartate Amino Transferase 24 U/L (5-37); Bilirubin Total 0.4 mg/dL (0.0-1.0); Blood Urea Nitrogen 20 mg/dL (9-16); Calcium 8.9 mg/dL (8.4-10.2); Carbon Dioxide 23 mmol/L (22-29); Chloride 111 mmol/L (96-108); Estimated Glomerular Filt Rate > 60; Glucose Fasting 178 mg/dL (60-99); Potassium 4.2 mmol/L (3.3-5.1); Sodium 140 mmol/L (135-145); Total Protein 7.2 g/dL (6.5-8.0)
[2024-11-19 11:01] LABS: Creatinine Urine 132.68 mg/dL
== END 2024-11-19 08:42 | disposition home or self-care (01) ==
LOC: HO.HMGCLDS 08:41
PROVIDERS: PCP Internal Medicine; Visit Provider Internal Medicine
DX: E11.9 Type 2 diabetes mellitus without complications (principal); E78.5 Hyperlipidemia, unspecified; Z79.84 Long term (current) use of oral hypoglycemic drugs; Z00.00 Encounter for general adult medical examination without abnormal findings
CPT/HCPCS: 36415; 80053; 82043; 82570; 83036; 85025; 96127

== ENCOUNTER 2024-11-19 09:06 | Outpatient (AMB) | payer OTHER, SELFPAY ==
--- OUTSIDE RECORDS SUMMARY | 2024-11-19 09:09 | XMS_ITS | Clinical Summary ---
Author Organization [facility] Address [address] [place] [address] Phone Care Team Providers Care Mold Tooling Technician Name Role Phone Susana Webster MD Primary Care Provider [phone] Encounters Date Type Department Care Team Description 09/05/2024 Telephone Gastroenterology - [place] [address] [facility] 175 [facility] [address] [place] [address] Marti Padilla MD provider call [...] Screening (Lipid Panel) 01/27/2023 Depression Screening 01/27/2023 Hepatitis C Screening 01/27/2023 Social [...] age to complete this topic Care Teams Mold Tooling Technician Relationship Specialty Start Date End Date Susana Webster MD PCP - General 07/08/22
[2024-11-19 09:16] VITALS: BP 118/66; PULSE 75; RESP 18; TEMP 36.9; O2SAT 97; BMI 25.2
--- NOTE | 2024-11-19 09:16 | MHC.PC.OV ---
Vital Signs 11/19/24 09:16 Height 5 ft 8 in Weight 166 lb BMI 25.2 BP 118/66 Blood Pressure Location Rt brachial Position Sitting Respiration 18 Pulse 75 Pulse Source Pulse Oximeter Temp 98.5 F Temp Source Oral Pulse Oximetry (%) 97 Oxygen Delivery Method Room Air Intake Visit Reasons: 4m follow up Intake Note: Pt is here today for 4 months follow up visit. Allergies No Known Allergies Allergy (Verified 11/19/24 09:17) Medication List - Last Reconciled 11/19/24 by Susana Webster MD atorvastatin 20 mg PO DAILY blood sugar diagnostic (FreeStyle Lite Strips) 1 QD lancets (FreeStyle Lancets) As directed metformin 500 mg PO BID Tobacco use date assessed: 11/19/24 Fall risk assessment: No Falls in past year Last assessed Fall Risk: 11/19/24 Dental Screening Dental Screen Date: 11/19/24 Did you have a dental visit in the last 12 months?: Yes Did you have a dental problem in the last 6 months where you did not have access to dental care?: No Was dental information given to patient?: Patient has dentist HPI 4m follow up HPI Details Pt presents for DM 2, hyperlipid, stable on meds. He is going on a ski trip to [facility] in 2 weeks. [facility] Medical History Hyperlipidemia DM type 2 (diabetes mellitus, type 2) Surgical History (Updated 11/19/24 @ 09:49 by Susana Webster MD) History of orchiectomy Family History Father Prostate cancer Mother No problems noted. Social History Housing: House Patient Tobacco Use Status: Never used Tobacco e-Cigarette/Vaping Use: Never Used service: No Current occupational status: employed Cognitive needs: No Hearing needs: No Vision needs: Yes Questionnaire PHQ-9 Over the last 2 weeks, how often have you been bothered by any of the following problems? 1. Little interest or pleasure in doing things: not at all 2. Feeling down, depressed, or hopeless: not at all 3. Trouble falling or staying asleep, or sleeping too much: not at all 4. Feeling tired or having little energy: not at all 5. Poor appetite or overeating: not at all 6. Feeling bad about yourself - or that you are a failure or have let yourself or your family down: not at all 7. Trouble concentrating on things, such as reading the newspaper or watching television: not at all 8. Moving or speaking so slowly that other people could have noticed. Or the opposite - being so fidgety or restless that you have been moving around a lot more than usual: not at all 9. Thoughts that you would be better off or of hurting yourself in some way: not at all Total score: 0 Depression Screening Interpretation: Negative Depression Screening Done: Yes 90803 - PHQ-9 Billing: Yes Source: Developed by Drs. Angel Moran, Laura Delgadillo, George Miller and colleagues, with an educational jeevan from [employer]. Thrive Questionnaire Date Thrive assessed: 11/19/24 I am a: Patient What is your living situation today?: I have a steady place to live Within the past 12 months, did the food you bought not last and you didn't have the money to get more?: Never true Within the past 12 months, did you worry whether your food would run out before you got money to buy more?: Never true Do you have trouble paying for medicines?: No Do you have trouble getting transportation to medical appointments?: No Do you have trouble paying your heating and electricity bill?: No Do you have trouble taking care of your child, family member or friend?: No Do you have trouble with day-to-day activities such as bathing, preparing meals, shopping, managing finances, etc.?: No Are you currently unemployed and looking for a job?: No Are you interested in more education?: No Please select the resources that you would like help with: None Currently or been in a relationship where the following occur: No concerns reported THRIVE Score: 0 AUDIT C Alcohol Use Questionnaire (AUDIT-C) 1. How often do you have a drink containing alcohol?: 2-3 times a week 2. How many drinks containing alcohol do you have on a typical day when you are drinking?: 1 or 2 3. How often do you have six or more drinks on one occasion?: Less than monthly Total Score: 4 RANDI-7 AMB Questionnaire RANDI-7 Date RANDI - 7 assessed: 11/19/24 Feeling nervous, anxious, or on edge: 1 = Several days Not being able to stop or control worryin = Not at all Worrying too much about different things: 1 = Several days Trouble relaxin = Not at all Being so restless that it is hard to sit still: 0 = Not at all Becoming easily annoyed or irritable: 1 = Several days Feeling afraid as if something awful might happen: 0 = Not at all Total RANDI-7 score (0-4 normal; 5-9 mild; 10-14 moderate; 15-21 severe): 3 Source: Developed by Drs. Angel Moran, Laura Delgadillo, George Miller and colleagues, with an educational jeevan from [employer]. RANDI-7 Assessment Billing RANDI-7 Assessment Tool: RANDI-7 Assessment 91425 Review of Systems Const All systems reviewed & are unremarkable except as noted in HPI and below Eyes Reports no additional complaints ENT Reports no additional complaints Card Reports no additional complaints Resp Reports no additional complaints GI Reports no additional complaints Reports no additional complaints Musc Reports no additional complaints Physical exam (Primary Care) Vital Signs: Last Vital Signs Temp 98.5 F 11/19/24 09:16 Pulse 75 11/19/24 09:16 Resp 18 11/19/24 09:16 BP 118/66 11/19/24 09:16 Pulse Ox 97 11/19/24 09:16 Oxygen Delivery Method Room Air 11/19/24 09:16 BMI result Body Mass Index 25.2 Tobacco/Smoking Status: Tobacco use Status Tobacco use date assessed 11/19/24 11/19/24 09:22 Patient Tobacco Use Status Never used Tobacco 11/19/24 09:22 e-Cigarette/Vaping Use Never Used 11/19/24 09:22 PHQ-9: PHQ-9 Score PHQ-9: Total score 0 11/19/24 09:22 Depression Screening Interpretation: Negative Thrive Assessment: Date of Thrive Assessment Date Thrive assessed 11/19/24 11/19/24 09:22 Currently or been in a relationship where the following occur: No concerns reported Const General: no acute distress HENMT Head: Yes normal to inspection Ears: hearing grossly normal bilaterally Face and sinus: Yes normal facial exam Eyes General: appearance normal, both eyes and all related structures Neck Neck: Yes no lymphadenopathy and Yes supple Resp Effort & Inspection: normal respiratory effort Auscultation: clear to auscultation bilaterally Cardio Rhythm: regular rhythm Heart sounds: S1 normal heart sound present and S2 normal heart sound present GI Inspection: Yes normal to inspection Palpation (GI): Soft to palpation Percussion: Yes normal to percussion Auscultation: normal bowel sounds Coding Level of Care Code Est Pt Level 3 (44850) Diagnoses DM type 2 (diabetes mellitus, type 2) E11.9 Hyperlipidemia E78.5 Additional Codes RANDI-7 Assessment Billing - RANDI-7 Assessment Tool: RANDI-7 Assessment 09243 ([id number]) PHQ-9 - 05824 - PHQ-9 Billing: Yes ([id number]) Assessment & Plan Assessment & Plan (1) DM type 2 (diabetes mellitus, type 2): Code(s): E11.9 - Type 2 diabetes mellitus without complications Category: Medical Plan: Patient had a blood work this morning but results are pending. He reports fasting glucose between 130-180 depending on physical activity and diet. He has been trying to follow ADA diet but not all the time. Patient has been taking metformin 1000 mg daily. If A1c is 6.5 or more increasing metformin to 750 twice a day discussed with the patient. Follow-up in 3 months (2) Hyperlipidemia: Comment: [place] hyperglycemia Code(s): E78.5 - Hyperlipidemia, unspecified Category: Medical Plan: Continue statin check lipid profile
== END 2024-11-19 09:54 | disposition home or self-care (01) ==
PROVIDERS: PCP Internal Medicine; Visit Provider Internal Medicine
DX: E11.9 Type 2 diabetes mellitus without complications (principal); E78.5 Hyperlipidemia, unspecified

== ENCOUNTER 2025-02-20 09:54 | Outpatient (AMB) | payer MEDICARE, SELFPAY ==
[2025-02-20 10:20] VITALS: BP 120/76; PULSE 68; RESP 18; TEMP 36.7; O2SAT 97; BMI 25.1
--- NOTE | 2025-02-20 10:20 | MHC.PC.OV ---
Vital Signs 02/20/25 10:20 Height 5 ft 8 in Weight 165 lb BMI 25.1 BP 120/76 Blood Pressure Location Lt brachial Position Sitting Respiration 18 Pulse 68 Pulse Source Pulse Oximeter Temp 98.1 F Temp Source Oral Pulse Oximetry (%) 97 Oxygen Delivery Method Room Air Intake Visit Reasons: 3m follow up Intake Note: Pt is here today for 3 months follow up visit. Allergies No Known Allergies Allergy (Verified 02/20/25 10:21) Medication List - Last Reconciled 02/20/25 by Susana Webster MD atorvastatin 20 mg PO DAILY blood sugar diagnostic (FreeStyle Lite Strips) 1 QD lancets (FreeStyle Lancets) As directed metformin ER 750 mg PO BID Tobacco use date assessed: 02/20/25 Fall risk assessment: No Falls in past year Last assessed Fall Risk: 02/20/25 Dental Screening Dental Screen Date: 11/19/24 HPI 3m follow up HPI Details Pt presents for DM 2 and hyperlipid, stable on meds. [facility] Medical History Hyperlipidemia DM type 2 (diabetes mellitus, type 2) Surgical History History of orchiectomy Family History Father Prostate cancer Mother No problems noted. Social History Housing: House Patient Tobacco Use Status: Never used Tobacco e-Cigarette/Vaping Use: Never Used service: No Current occupational status: employed Cognitive needs: No Hearing needs: No Vision needs: Yes Questionnaire Thrive Questionnaire Date Thrive assessed: 11/12/24 I am a: Patient What is your living situation today?: I have a steady place to live Within the past 12 months, did the food you bought not last and you didn't have the money to get more?: Never true Within the past 12 months, did you worry whether your food would run out before you got money to buy more?: Never true Do you have trouble paying for medicines?: No Do you have trouble getting transportation to medical appointments?: No Do you have trouble paying your heating and electricity bill?: No Do you have trouble taking care of your child, family member or friend?: No Do you have trouble with day-to-day activities such as bathing, preparing meals, shopping, managing finances, etc.?: No Are you currently unemployed and looking for a job?: No Are you interested in more education?: No Please select the resources that you would like help with: None Currently or been in a relationship where the following occur: No concerns reported THRIVE Score: 0 RANDI-7 AMB Questionnaire RANDI-7 Date RANDI - 7 assessed: 11/19/24 Source: Developed by Drs. Angel Moran, Laura Delgadillo, George Miller and colleagues, with an educational jeevan from [employer]. Review of Systems Const All systems reviewed & are unremarkable except as noted in HPI and below Reports no additional complaints Eyes Reports no additional complaints ENT Reports no additional complaints Card Reports no additional complaints Resp Reports no additional complaints GI Reports no additional complaints Reports no additional complaints Physical exam (Primary Care) Vital Signs: Last Vital Signs Temp 98.1 F 02/20/25 10:20 Pulse 68 02/20/25 10:20 Resp 18 02/20/25 10:20 BP 120/76 02/20/25 10:20 Pulse Ox 97 02/20/25 10:20 Oxygen Delivery Method Room Air 02/20/25 10:20 BMI result Body Mass Index 25.1 Tobacco/Smoking Status: Tobacco use Status Tobacco use date assessed 02/20/25 02/20/25 10:21 Patient Tobacco Use Status Never used Tobacco 02/20/25 10:21 e-Cigarette/Vaping Use Never Used 02/20/25 10:21 Thrive Assessment: Date of Thrive Assessment Date Thrive assessed 11/12/24 02/20/25 10:21 Currently or been in a relationship where the following occur: No concerns reported Const General: no acute distress HENMT Head: Yes normal to inspection Face and sinus: Yes normal facial exam Mouth: Normal oral and palatal mucosa present Throat: Yes posterior oropharynx normal Eyes General: appearance normal, both eyes and all related structures Neck Neck: Yes no lymphadenopathy and Yes supple Resp Effort & Inspection: normal respiratory effort Auscultation: clear to auscultation bilaterally Cardio Rhythm: regular rhythm Heart sounds: S1 normal heart sound present and S2 normal heart sound present GI Inspection: Yes normal to inspection Palpation (GI): Soft to palpation Percussion: Yes normal to percussion Auscultation: normal bowel sounds Results AMB Hemoglobin A1c AMB Hemoglobin A1c 6.6 % Last Edit by VILMA Haro on 02/20/25 10:59 Immunizations pneumoc 20-amanda conj-dip cr(PF) 0.5 mL IM syringe Performing Provider: Susana Webster MD Performing Location: [facility] Administered by: Lorenzo Law CMA on 02/20/25 11:01 Dose Route Admin Location Dispensed Lot Number Expiration Date NDC [employer] 0.5 mL IM Right Deltoid 0.5 mL [id number] 04/01/26 [id number] [employer] VIS Given Date VIS Provided VIS Publication Date 02/20/25 Single Vaccine 21 Eligibility Eligibility Date Funding Source Not [facility] Eligible 02/20/25 Private Results Reviewed Results Reviewed: Laboratory Last Values Hgb A1c (Clinic) 6.6 % (4.0-6.0) H 02/20/25 10:58 Coding Level of Care Code Est Pt Level 3 (28246) Diagnoses Hyperlipidemia E78.5 DM type 2 (diabetes mellitus, type 2) E11.9 Assessment & Plan Assessment & Plan (1) Hyperlipidemia: Code(s): E78.5 - Hyperlipidemia, unspecified Category: Medical Plan: cont Atorvastatin (2) DM type 2 (diabetes mellitus, type 2): Code(s): E11.9 - Type 2 diabetes mellitus without complications Category: Medical Plan: a1c 6.6. ADA diet increase physical activity continue metformin and follow-up in 5 months with a fasting labs before Orders: Orders AMB Hemoglobin A1c Today Z13.9 - Encounter for screening, unspecified UA w Microscopic 5 Months E11.9 - Type 2 diabetes mellitus without complications, E78.5 - Hyperlipidemia, unspecified PSA,Total (Free>4and<10) 5 Months E11.9 - Type 2 diabetes mellitus without complications, E78.5 - Hyperlipidemia, unspecified Pneumococcal 20 Immunization Today Z23 - Encounter for immunization
--- OUTSIDE RECORDS SUMMARY | 2025-02-20 11:16 | XMS_ITS | Clinical Summary ---
Author Organization [facility] Address [address] [place] [phone] Phone Care Team Providers Care Sample Maker Hand Name Role Phone Susana Webster MD Primary Care Provider [phone] Social History Tobacco Use Types Packs/Day Years [...] 2009 Zoster Vaccines (1 of 2) 2009 Abdominal Aortic Aneurysm (A AA) Screen 01/27/2023 Cholesterol Screening (Lipid Panel) 01/27/2023 Depression Screening 01/27/2023 Hepatitis C Screening 01/27/2023 Social Influencers of Health Screening 01/27/2023 COVID-19 Vaccine ( - 2023-2 5 season) 2024 Falls Risk Assessment 2024 Influenza Vaccine (Season Ended) 2025 Colorectal Cancer Screening: Colonoscopy 09/11/2025 09/11/2024 RSV Immunization Adult Patie nts (1 - 1-dose 75+ series) 2034 HIB [...] age to complete this topic Meningococcal B Vaccine Aged Out No l onger eligible based on patient's age to complete [...] age to complete this topic Care Teams Sample Maker Hand Relationship Specialty Start Date End Date Susana Webster MD PCP - General 07/08/22
== END 2025-02-20 11:01 | disposition home or self-care (01) ==
LOC: HO.HMCC 09:55
PROVIDERS: PCP Internal Medicine; Visit Provider Internal Medicine
DX: E78.5 Hyperlipidemia, unspecified (principal); E11.9 Type 2 diabetes mellitus without complications; Z23 Encounter for immunization; Z13.9 Encounter for screening, unspecified

== ENCOUNTER → 2025-02-20 09:54 | Outpatient (BNVA) | payer MEDICARE, SELFPAY | PROVIDERS: PCP Internal Medicine; Visit Provider Internal Medicine | DX: E11.9 Type 2 diabetes mellitus without complications (principal); E78.5 Hyperlipidemia, unspecified; Z23 Encounter for immunization | CPT/HCPCS: 83036; 90471; 90677; 99212 ==

== ENCOUNTER 2025-07-18 07:54 | Outpatient (REF) | payer MEDICARE, SELFPAY ==
--- OUTSIDE RECORDS SUMMARY | 2025-07-18 07:57 | XMS_ITS | Clinical Summary ---
Author Organization [facility] Address [address] [place] [phone] Phone Care Team Providers Care Upper Leather Cutter Name Role Phone Susana Webster MD Primary Care Provider [phone] Social History Tobacco Use Types Packs/Day Years [...] Screen 01/27/2023 Cholesterol Screening (Lipid Panel) 01/27/2023 Hepatitis C Screening 01/27/2023 Social Influencers of Health Screening 01/27/2023 Depression Screening 10/03/2024 Falls Risk Assessment 2024 COVID-19 Vaccine ( - 2023-2 5 season) 2025 Influenza Vaccine (#1) 2025 Colorectal Cancer Screening: Colonoscopy 09/11/2025 09/11/2024 [...] age to complete this topic Care Teams Upper Leather Cutter Relationship Specialty Start Date End Date Susana Webster MD PCP - General 07/08/22
[2025-07-18 10:05] LABS: MANUAL DIFF FLAG NO
[2025-07-18 10:11] LABS: Hematocrit 39.6 % (42.0-52.0); Hemoglobin 13.8 g/dl (14.0-18.0); Imm Gran Abs Auto 0.01 X10*3/uL (0.00-0.03); Imm Gran Pct Auto 0.3 % (0.0-0.4); Lymphocytes Absolute Auto 0.9 X10*3/uL (1.2-4.9); Mean Corpuscular HGB Conc 34.8 g/dl (31.0-36.0); Mean Corpuscular Hemoglobin 31.4 pg (27.0-33.0); Mean Corpuscular Volume 90.0 fL (80.0-98.0); NRBC Abs Auto 0.000 X10*3/uL (0.0-0.012); NRBC Pct Auto 0.0 /100WBC (0.0-0.2); Platelet Count 252 X10*3/uL (160-400); Red Blood Count 4.40 X10*6/uL (4.60-5.80); White Blood Count 3.6 X10*3/uL (4.8-10.8)
[2025-07-18 10:37] LABS: Appearance Urine Turbid; Glucose Urine UA 100 mg/dL (Negative); PH 5.5 (5.0-9.0); Specific Gravity - Urine 1.020 (1.005-1.025)
[2025-07-18 11:11] LABS: PSA,Total (Free>4and<10) 2.49 ng/mL (0.00-4.00)
[2025-07-18 11:25] LABS: Folate 10.4 ng/mL (> or = 4.0); Vitamin B12 542 pg/mL (200-900)
[2025-07-18 11:26] LABS: Alanine Aminotransferase 20 U/L (0-40); Albumin Level 4.4 g/dL (3.5-5.0); Alkaline Phosphatase 69 U/L (39-117); Anion Gap 10 (12-20); Aspartate Amino Transferase 25 U/L (5-37); Blood Urea Nitrogen 17 mg/dL (9-16); Calcium 9.0 mg/dL (8.4-10.2); Carbon Dioxide 28 mmol/L (22-29); Chloride 107 mmol/L (96-108); Estimated Glomerular Filt Rate > 60; Potassium 4.0 mmol/L (3.3-5.1); Sodium 141 mmol/L (135-145); Total Protein 7.1 g/dL (6.5-8.0)
[2025-07-18 11:30] LABS: Microalbum/Creatinine Ratio Ur 14.6 ug/mg cr (<30)
== END 2025-07-18 07:55 | disposition home or self-care (01) ==
LOC: HO.HMGCLDS 07:54
PROVIDERS: PCP Internal Medicine; Visit Provider Internal Medicine
DX: E11.9 Type 2 diabetes mellitus without complications (principal); E78.5 Hyperlipidemia, unspecified; Z12.5 Encounter for screening for malignant neoplasm of prostate
CPT/HCPCS: 36415; 80053; 81001; 82043; 82570; 82607; 82746; 83036; 84153; 85025

== ENCOUNTER 2025-07-23 09:58 | Outpatient (AMB) | payer MEDICARE, SELFPAY ==
[2025-07-23 10:06] VITALS: BP 120/78; PULSE 64; RESP 17; TEMP 36.7; O2SAT 97; BMI 24.8
--- NOTE | 2025-07-23 10:06 | MHC.PC.OV ---
Vital Signs 07/23/25 10:06 Height 5 ft 8 in Weight 163 lb BMI 24.8 BP 120/78 Blood Pressure Location Lt brachial Position Sitting Respiration 17 Pulse 64 Pulse Source Pulse Oximeter Temp 98.1 F Temp Source Oral Pulse Oximetry (%) 97 Oxygen Delivery Method Room Air Intake Visit Reasons: PE - see comments Intake Note: Pt is here today for PE. Allergies No Known Allergies Allergy (Verified 07/23/25 10:07) Medication List - Last Reconciled 07/23/25 by Susana Webster MD atorvastatin 20 mg PO DAILY blood sugar diagnostic (FreeStyle Lite Strips) 1 QD lancets (FreeStyle Lancets) As directed metformin ER 750 mg PO BID Tobacco use date assessed: 07/23/25 Fall risk assessment: No Falls in past year Last assessed Fall Risk: 07/23/25 Dental Screening Dental Screen Date: 11/19/24 HPI PE - see comments HPI Details Pt presents for PE. Pt reports higher fasting blood glucose readings despite following ADA diet for the last 2 months. Patient has been less physically active than in the summer. [facility] Medical History (Updated 07/23/25 @ 11:09 by Susana Webster MD) Annual physical exam Anemia Hyperlipidemia DM type 2 (diabetes mellitus, type 2) Surgical History (Updated 07/23/25 @ 10:53 by Susana Webster MD) Hx of colonoscopy History of orchiectomy Family History Father Prostate cancer Mother No problems noted. Social History Housing: House Patient Tobacco Use Status: Never used Tobacco e-Cigarette/Vaping Use: Never Used service: No Current occupational status: employed Cognitive needs: No Hearing needs: No Vision needs: Yes Questionnaire PHQ-9 Over the last 2 weeks, how often have you been bothered by any of the following problems? 1. Little interest or pleasure in doing things: not at all 2. Feeling down, depressed, or hopeless: not at all 3. Trouble falling or staying asleep, or sleeping too much: not at all 4. Feeling tired or having little energy: not at all 5. Poor appetite or overeating: not at all 6. Feeling bad about yourself - or that you are a failure or have let yourself or your family down: not at all 7. Trouble concentrating on things, such as reading the newspaper or watching television: not at all 8. Moving or speaking so slowly that other people could have noticed. Or the opposite - being so fidgety or restless that you have been moving around a lot more than usual: not at all 9. Thoughts that you would be better off or of hurting yourself in some way: not at all Total score: 0 Depression Screening Interpretation: Negative Depression Screening Done: Yes Source: Developed by Drs. Angel Moran, Laura Delgadillo, George Miller and colleagues, with an educational jeevan from [employer]. Thrive Questionnaire Date Thrive assessed: 11/12/24 I am a: Patient What is your living situation today?: I have a steady place to live Within the past 12 months, did the food you bought not last and you didn't have the money to get more?: Never true Within the past 12 months, did you worry whether your food would run out before you got money to buy more?: Never true Do you have trouble paying for medicines?: No Do you have trouble getting transportation to medical appointments?: No Do you have trouble paying your heating and electricity bill?: No Do you have trouble taking care of your child, family member or friend?: No Do you have trouble with day-to-day activities such as bathing, preparing meals, shopping, managing finances, etc.?: No Are you currently unemployed and looking for a job?: No Are you interested in more education?: No Please select the resources that you would like help with: None Currently or been in a relationship where the following occur: No concerns reported THRIVE Score: 0 RANDI-7 AMB Questionnaire RANDI-7 Date RANDI - 7 assessed: 11/19/24 Feeling nervous, anxious, or on edge: 0 = Not at all Not being able to stop or control worryin = Not at all Worrying too much about different things: 0 = Not at all Trouble relaxin = Not at all Being so restless that it is hard to sit still: 0 = Not at all Becoming easily annoyed or irritable: 0 = Not at all Feeling afraid as if something awful might happen: 0 = Not at all Total RANDI-7 score (0-4 normal; 5-9 mild; 10-14 moderate; 15-21 severe): 0 Source: Developed by Drs. Angel Moran, Laura Delgadillo, Geogre Miller and colleagues, with an educational jeevan from [employer]. Review of Systems Const All systems reviewed & are unremarkable except as noted in HPI and below Eyes Reports no additional complaints ENT Reports no additional complaints Card Reports no additional complaints Resp Reports no additional complaints GI Reports no additional complaints Reports no additional complaints Physical exam (Primary Care) Vital Signs: Last Vital Signs Temp 98.1 F 07/23/25 10:06 Pulse 64 07/23/25 10:06 Resp 17 07/23/25 10:06 BP 120/78 07/23/25 10:06 Pulse Ox 97 07/23/25 10:06 Oxygen Delivery Method Room Air 07/23/25 10:06 BMI result Body Mass Index 24.8 Tobacco/Smoking Status: Tobacco use Status Tobacco use date assessed 07/23/25 07/23/25 10:07 Patient Tobacco Use Status Never used Tobacco 07/23/25 10:07 e-Cigarette/Vaping Use Never Used 07/23/25 10:07 PHQ-9: PHQ-9 Score PHQ-9: Total score 0 07/23/25 10:44 Depression Screening Interpretation: Negative Thrive Assessment: Date of Thrive Assessment Date Thrive assessed 11/12/24 07/23/25 10:07 Currently or been in a relationship where the following occur: No concerns reported Const General: no acute distress HENMT Head: Yes normal to inspection Face and sinus: Yes normal facial exam Mouth: Normal oral and palatal mucosa present Throat: Yes posterior oropharynx normal Eyes General: appearance normal, both eyes and all related structures Neck Neck: Yes no lymphadenopathy and Yes supple Resp Effort & Inspection: normal respiratory effort Auscultation: clear to auscultation bilaterally Cardio Rhythm: regular rhythm Heart sounds: S1 normal heart sound present and S2 normal heart sound present GI Inspection: Yes normal to inspection Palpation (GI): Soft to palpation Percussion: Yes normal to percussion Auscultation: normal bowel sounds Extrem General: Yes no clubbing, cyanosis or edema Coding Level of Care Code Est Pt Prev Care >65y(58308) Diagnoses Hx of colonoscopy Z98.890 DM type 2 (diabetes mellitus, type 2) E11.9 Hyperlipidemia E78.5 Annual physical exam Z00.00 Assessment & Plan Assessment & Plan (1) Hx of colonoscopy: Comment: Dr. Zhang, 2016, repeat in 5 yrs, FHx colon polyps: father and brother, Dr. Padilla 07/2024 3 cm polyp recheck 1 yr Code(s): Z98.890 - Other specified postprocedural states Category: Surgical Plan: f/u with GI (2) DM type 2 (diabetes mellitus, type 2): Code(s): E11.9 - Type 2 diabetes mellitus without complications Category: Medical Plan: A1C 7.6, ADA diet increase physical activity discussed with the patient. Add Jardiance 10 mg to metformin, side effects discussed with the patient. Follow-up in 3 months with a fasting labs before (3) Hyperlipidemia: Code(s): E78.5 - Hyperlipidemia, unspecified Category: Medical Plan: Continue statin (4) Annual physical exam: Code(s): Z00.00 - Encounter for general adult medical examination without abnormal findings Category: Medical Plan: Well-balanced diet regular physical activity discussed with the patient Orders: Orders Hemoglobin A1c 3 Months E11.9 - Type 2 diabetes mellitus without complications, E78.5 - Hyperlipidemia, unspecified Comprehensive [place]. Panel Fast 3 Months E11.9 - Type 2 diabetes mellitus without complications, E78.5 - Hyperlipidemia, unspecified Complete Blood Count Auto Diff 3 Months E11.9 - Type 2 diabetes mellitus without complications, E78.5 - Hyperlipidemia, unspecified IRON PROFILE 3 Months E11.9 - Type 2 diabetes mellitus without complications, E78.5 - Hyperlipidemia, unspecified Lipid Panel 3 Months E11.9 - Type 2 diabetes mellitus without complications, E78.5 - Hyperlipidemia, unspecified Referrals Gastroenterology Referral E11.9 - Type 2 diabetes mellitus without complications, E78.5 - Hyperlipidemia, unspecified, Z98.890 - Other specified postprocedural states Medications: New empagliflozin (Jardiance) 10 mg PO DAILY 90 tabs 0RF
== END 2025-07-23 11:22 | disposition home or self-care (01) ==
LOC: HO.HMCC 09:59
PROVIDERS: PCP Internal Medicine; Visit Provider Internal Medicine
DX: Z00.00 Encounter for general adult medical examination without abnormal findings (principal); Z98.890 Other specified postprocedural states; E11.69 Type 2 diabetes mellitus with other specified complication; E78.5 Hyperlipidemia, unspecified

== ENCOUNTER → 2025-07-23 09:58 | Outpatient (BNVA) | payer MEDICARE, SELFPAY | PROVIDERS: PCP Internal Medicine; Visit Provider Internal Medicine | DX: Z00.00 Encounter for general adult medical examination without abnormal findings (principal); E11.9 Type 2 diabetes mellitus without complications; E78.5 Hyperlipidemia, unspecified; Z98.890 Other specified postprocedural states | CPT/HCPCS: 96127; 99397 ==